=== PATIENT | male | born 1975 ===

== ENCOUNTER 2024-06-05 16:03 | Emergency (ER) | payer OTHER, SELFPAY ==
--- NOTE | ~2024-06-05 | XR_ITS ---
EXAMINATION: XR HAND/WRIST, RIGHT CLINICAL INFORMATION: Right pinky dog bite. COMPARISON: None available. TECHNIQUE: PA, lateral, and oblique views of the right hand and wrist. FINDINGS: The majority of the distal phalanx of the right fifth digit is missing. Only the base is seen. On the lateral view, the base appears subluxed ventrally upon the middle phalanx. There is marked soft tissue swelling. Bandages obscure detail. No foreign bodies are seen. The bones otherwise appear unremarkable. XR/XR hand wrist RT IMPRESSION: The majority of the distal phalanx of the right fifth digit is missing as described above. Electronically signed by: Vineet Mars MD 06/05/2024 06:09 PM JEOVANY MCBRIDE
[2024-06-05 16:08] VITALS: BP 144/86; PULSE 98; RESP 18; TEMP 37.3; O2SAT 94; BMI 31.0
--- NOTE | 2024-06-05 16:13 | ED_ITS ---
HPI - General Adult General Chief complaint: Animal Bite Stated complaint: Rt pinky finger-bit by his dog Time Seen by Provider: 06/05/24 16:45 Source: patient and family Mode of arrival: ambulatory Limitations: no limitations History of Present Illness ED Provider: DR. Tavarez HPI narrative: A 49-year-old male came in for evaluation right 5th finger laceration/amputation after was bitten by his own dog, the dog is indoor an fully and up to date on his immunizations the patient was trying to break a fight between his dog and another dog who bit his finger and causing complete amputation of distal phalanx of the right 5th finger. Patient is a right hand dominant. Patient is up-to-date on his own tetanus shot. Related Data Previous Rx's ?Medication ?Instructions ?Recorded amoxicillin 875 mg-potassium 1 tab PO BID #20 tabs 06/05/24 clavulanate 125 mg tablet oxycodone 5 mg tablet 5 mg PO Q8H PRN pain #7 tabs 06/05/24 Allergies Allergy/AdvReac Type Severity Reaction Status Date / Time No Known Allergies Allergy Verified 06/05/24 16:11 Review of Systems 2 Review of Systems: All other systems are reviewed and are negative Constitutional: Reports as per HPI and Reports no additional constitutional complaints Eyes: Reports as per HPI and Reports no additional eye complaints Reports system reviewed and no additional complaints, except as documented Cardiovascular: Reports as per HPI and Reports no additional cardiovascular complaints Respiratory: Reports as per HPI and Reports no additional respiratory complaints Gastrointestinal: Reports as per HPI and Reports no additional gastrointestinal complaints Genitourinary: Reports no additional female genitourinary complaints Musculoskeletal: Reports no additional musculoskeletal complaints Skin/Breast: Reports system reviewed and no additional complaints, except as docu Psychiatric: Reports no additional psychiatric complaints Endocrine: Reports no additional endocrine complaints Hematologic/Lymphatic: Reports no additional hematologic/lymphatic complaints Allergic/Immunologic: Reports no additional allergic/immunologic complaints Reports system reviewed and no additional complaints, except as documented and Reports Abnormal speech present [facility] Social History Social History Advance Directives: No Advance Directives Information Provided: Yes Physical Exam ED Vital Signs: Vital Signs - 24 hr 06/05/24 16:08 06/05/24 16:48 06/05/24 17:12 Temperature 99.2 F 98.2 F Pulse Rate 98 94 Respiratory Rate 18 13 14 Blood Pressure 144/86 H 148/82 H Pulse Oximetry 94 Oxygen Delivery Method Room Air BMI result Body Mass Index 31.0 Vital signs have been reviewed and appear to be correct. Blood pressure elevated. Heart rate normal. Respiratory rate normal. Temperature normal. Oxygen saturation normal. Appearance: Alert. Oriented X3. No acute distress. Head: Normal external exam. Normocephalic. Atraumatic. No Lepe signs noted. No raccoon eyes noted Eyes: PERRLA. EOMI. Conjunctiva and sclera normal. Eyelids normal. ENT: TM's Normal. Pharynx normal. Uvula midline. Moist mucous membranes. No trismus noted. No drooling noted. No muffled voice noted. Neck: Normal inspection. Neck supple. FROM. No adenopathy. Thyroid Normal. No meningeal signs. No neck mass noted. CVS: Normal heart rate and rhythm. Heart sound normal. No murmurs noted. Pulses normal throughout. Respiratory: No respiratory distress. Painless inspiration. Breath sounds normal. No wheezes/rales/rhonchi noted. Chest nontender. No accessory muscle usage noted or decreased air movement noted. Abdomen: Soft and nontender. Bowel sounds normal in all 4 quadrants. No distention noted. No organomegaly noted. No visible injury noted. Back: No CVA tenderness. Full range of motion noted. Skin: Skin warm and dry. Normal skin color. Normal skin turgor. No rashes/lesions/lacerations noted. Extremities: Right hand: Complete amputation of distal phalanx of right 5th finger. Neuro: Oriented X 3. Cranial nerve exam: II-XII are grossly intact No motor deficit. No sensory deficit. Reflexes normal. Course Course Course Narrative: RME: 49 yold male presents to the ED for dog bite to right pinky finger. on exam it seems dog ate half of patient's finger off. exam shows DIP of pinky finger missing. patient's DOG uptdate with rabies. tdap and xray Reevaluation(s) Reevaluation #1: 49-year-old male sustained a right 5th finger distal phalanx amputation after was bitten by his own dog who is up-to-date on his immunization, the case was discussed with Marline FISH on-call for Orthopedic and the plan is to do copious irrigation of the wounds, IV antibiotic, pain control, and follow-up at ortho Clinic tomorrow. Time: 19:00 Reevaluation #2: Copious irrigation using a L of normal saline with high pressure into the wound, the wound was dressed with bacitracin then gauze and wrapped with Milton bandage with pressure dressing. Time: 18:29 Medications Administered Discontinued Medications Generic Name Dose Route Start Last Admin Trade Name Freq PRN Reason Stop Dose Admin Bacitracin 3 appl 06/05/24 18:02 06/05/24 18:53 Bacitracin Oint 0.9 Gm Packet TOPICAL 06/05/24 18:03 3 appl ONCE ONE Administration Protocol Diphtheria/Tetanus/Acell Pertussis 0.5 ml 06/05/24 16:12 06/05/24 17:13 Diphth,Pertus(Acell),Tet Adult 0.5 Ml Syringe IM 06/05/24 16:13 0.5 ml .ONCE ONE Administration Hydromorphone HCl 1 mg 06/05/24 16:54 06/05/24 17:12 Hydromorphone Hcl 1 Mg/Ml Syringe IVPUSH 06/05/24 16:55 1 mg ONCE ONE Administration Protocol Piperacillin Sod/Tazobactam 50 mls @ 100 mls/hr 06/05/24 16:54 06/05/24 17:14 Sod 3.375 gm/ Sodium Chloride IV 06/05/24 17:23 100 mls/hr ONCE ONE Administration Sodium Chloride 1,000 mls @ 999 mls/hr 06/05/24 16:55 06/05/24 17:12 Ns IV 06/05/24 17:55 999 mls/hr .Q1H1M ONE Administration Medical Decision Making Differential Diagnosis Differential Diagnoses: The differential diagnosis associated with the presentation includes (Osteomyelitis, fracture, foreign body in the wound, intractable pain.) Admission/Observation Consideration of admission/observation: Escalation of care including admission/observation considered Independent Interpretation I performed an independent interpretation of an: Plain X-Ray (Right hand:The majority of the distal phalanx of the right fifth digit is missing. Only the base is seen. On the lateral view, the base appears subluxed ventrally upon the middle phalanx. There is marked soft tissue swelling. Bandages obscure detail. No foreign bodies are seen. The bones otherwi) Radiology Impression Discussion of test interpretation with radiology: I have reviewed the radiologist's reading. Discharge Plan Discharge Clinical Impression: Dog bite, Amputation of finger of right hand Patient Disposition: Home, Self-Care Instructions: Animal Bite (ED) Prescriptions: New amoxicillin-pot clavulanate 875-125 mg tablet 1 tab PO BID Qty: 20 0RF oxycodone 5 mg tablet 5 mg PO Q8H PRN (Reason: pain) Qty: 7 0RF Rx Instructions: Partial Fill upon patient request. Referrals: Sophia Leonardo MD [Physician] - Stand Alone Forms: Work/School Release Print Language: Albanian
[2024-06-05 16:48] VITALS: BP 148/82; PULSE 94; RESP 13; TEMP 36.8
[2024-06-05 17:12] VITALS: RESP 14
[2024-06-05] MEDS: 0.9 % Sodium Chloride 1,000 ML 999 ML IV (17:12)
[2024-06-05] MEDS: HYDROmorphone HCl 1 MG/ML SYRINGE IVPUSH ×2 (17:12→19:10)
[2024-06-05] MEDS: Diphth,Pertus(ACell),Tet Adult 0.5 ML SYRINGE IM (17:13)
[2024-06-05] MEDS: Piperacillin Sodium/Tazobactam 3.375 GM in 0.9 % Sodium Chloride 50 ML IV (17:14)
[2024-06-05] MEDS: Bacitracin Oint 0.9 GM PACKET 3 APPL TOPICAL (18:53)
[2024-06-05 19:10] VITALS: RESP 16
[2024-06-05 19:13] VITALS: BP 140/82; PULSE 81; RESP 16; TEMP 36.7; O2SAT 93
[2024-06-05 19:48] VITALS: BP 140/82; PULSE 81; RESP 16; TEMP 36.7; O2SAT 93
== END 2024-06-05 19:51 | disposition home or self-care (01) ==
PROVIDERS: Emergency Provider Emergency Medicine
DX: S68.126A Partial traumatic metacarpophalangeal amputation of right little finger, initial encounter (principal); M79.641 Pain in right hand; M25.531 Pain in right wrist; W54.0XXA Bitten by dog, initial encounter; Y93.89 Activity, other specified; Y92.89 Other specified places as the place of occurrence of the external cause; Y99.8 Other external cause status; Z23 Encounter for immunization
CPT/HCPCS: 73110; 73130; 90471; 90715; 96361; 96374; 96375; 96376; 99284; J1171; J2543

== ENCOUNTER 2024-06-07 09:41 | Outpatient (REF) | payer OTHER, SELFPAY ==
--- NOTE | ~2024-06-07 | XR_ITS ---
CLINICAL HISTORY: M79.641 - Pain in right hand Exam: AP, lateral, and oblique views of the right hand. Comparison: None. Findings: There is truncation of the distal phalanx of the small finger as well as soft tissue defect of the distal aspect of the small finger. There is presumed overlying gauze material. Diffuse soft tissue swelling. Metacarpophalangeal joints are anatomically aligned. Mild degenerative change of the 1st metacarpophalangeal joint. Impression: Extensive abnormality involving the distal aspect of the small finger. Clinical correlation advised as to the etiology. There is near-complete loss of the distal phalanx with soft tissue truncation. Question whether the patient had traumatic amputation or other etiology for extensive bony destructive change and soft tissue defect. This document has been electronically signed by: Carlos Wilkins MD on 06/11/2024 07:29:40
== END 2024-06-07 09:42 | disposition home or self-care (01) ==
LOC: HO.HOSX 09:41
DX: M79.641 Pain in right hand (principal)
CPT/HCPCS: 73130

== ENCOUNTER 2024-06-07 09:44 | Outpatient (AMB) | payer OTHER, SELFPAY ==
--- NOTE | 2024-06-07 09:58 | A.OFFVIS_ITS ---
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 Patient reports trying to separate his dog and another dog that were fighting when his dog bit his right small finger causing complete amputation of distal phalanx.Seen in ED same day. He states dog is fully vaccinated and up to date with vaccines. Currently states he was not able to sleep due to pain and throbbing in his small finger. Denies numbness or tingling. He was given ABX. 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 Patient reports trying to separate his dog and another dog that were fighting when his dog bit his right small finger causing complete amputation of distal phalanx.Seen in ED same day. He states dog is fully vaccinated and up to date with vaccines. Currently states he was not able to sleep due to pain and throbbing in his small finger. Denies numbness or tingling. He was given ABX. 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 Review of Systems Const All systems reviewed & are unremarkable except as noted in HPI and below Physical Exam Vital Signs: BMI result Body Mass Index 31.0 Extrem Other: Patient is alert, oriented, and in no acute distress. Neuro: Normal sensation of the tips of all digits of the right hand at this time Vascular: Cap refill brisk Pain: Patient reports significant pain with dressing removal on the right small finger ROM: Patient is able to make a closed fist and extend all other digits of the right hand fully and without difficulty Skin: Partial Traumatic amputation noted of the right small finger, with what appears to be exposed bone No evidence of infection General: No ecchymosis, erythema, or evidence of infection. Psych: Appears grossly normal Affect normal Attitude cooperative Assessment & Plan Assessment & Plan (1) 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 Traumatic amputation of the right small finger, partial Date of injury 06/05/2024 I educated the patient about the condition. I discussed both operative and nonoperative treatment options. The patient would like to proceed with surgery. The risks and benefits of operative treatment were discussed with the patient and the patient wishes to proceed with surgery. These risks include, but are no t limited to, risk of damage to blood vessels, nerves, tendons, infection, recurrence, incomplete relief of preoperative symptoms, persistent pain, possible need for further surgery, and the risks associated with regional blocks and/or anesthesia. Plan is to take the patient to the operating room at some point in the next few weeks for the following procedures: 1. Right small finger revision amputation under general anesthesia All of the preoperative paperwork including the consent was discussed today. All of the patient's questions were answered in the clinic today. The patient understands that they will be in contact with our surgical elastic knitter hand frame to discuss scheduling their procedure. Patient denies diabetes, blood thinners, asthma, heart issues, lung issues, kidney issues, or current smoking. Orders: Orders XR hand RT min 3V Today M79.641 - Pain in right hand Coding Level of Care Code Est Pt Level 4 (30484) Diagnoses 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
[2024-06-07 10:03] VITALS: BMI 31.0
== END 2024-06-07 10:49 | disposition home or self-care (01) ==
DX: S68.626A Partial traumatic transphalangeal amputation of right little finger, initial encounter (principal)
CPT/HCPCS: 99204

== ENCOUNTER → 2024-06-07 09:52 | Outpatient (BNV) | payer OTHER, SELFPAY | PROVIDERS: Visit Provider Radiology Diagnostic Radiology | DX: S68.626A Partial traumatic transphalangeal amputation of right little finger, initial encounter (principal) | CPT/HCPCS: 73130 ==

== ENCOUNTER 2024-06-07 12:44 | Emergency (ER) | payer OTHER, SELFPAY ==
[2024-06-07 12:46] VITALS: BP 145/88; PULSE 98; RESP 18; TEMP 36.6; O2SAT 98; BMI 31.0
--- NOTE | 2024-06-07 12:48 | ED_ITS ---
HPI - General Adult General Chief complaint: General Medical Stated complaint: wound open Time Seen by Provider: 06/07/24 13:33 Source: patient Mode of arrival: ambulatory Limitations: no limitations History of Present Illness ED Provider: renee jacobson np. HPI narrative: Patient is a 49-year-old male who presents emergency department for evaluation of bleeding to amputation stump, reports that he was evaluated in the hand specialist office prior to arrival he saw Ramsey FISH. he had a partial traumatic transphalangeal amputation of the right 5th digit on 06/05/2024. He states that today in the orthopedist office when the dressing was removed it began to bleed and it ?squirted blood?. Bleeding has continued and is now bleeding through the gauze. He reports significant pain to this area. Related Data Home Medications ?Medication ?Instructions ?Recorded ?Confirmed buspirone 10 mg tablet 10 mg PO BID 06/07/24 06/07/24 hydrochlorothiazide 25 mg tablet 25 mg PO DAILY 06/07/24 06/07/24 losartan 100 mg tablet 100 mg PO DAILY 06/07/24 06/07/24 sertraline 100 mg tablet 100 mg PO DAILY 06/07/24 06/07/24 Previous Rx's ?Medication ?Instructions ?Recorded amoxicillin 875 mg-potassium 1 tab PO BID #20 tabs 06/05/24 clavulanate 125 mg tablet oxycodone 5 mg tablet 5 mg PO Q8H PRN pain #7 tabs 06/05/24 Allergies Allergy/AdvReac Type Severity Reaction Status Date / Time No Known Allergies Allergy Verified 06/07/24 12:47 Review of Systems Review of Systems: Yes all other systems are reviewed and are negative [facility] Past Medical History Attestation statement: The following information was validated with the patient. 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 Physical Exam ED Vital Signs: Vital Signs - 24 hr 06/07/24 12:46 Temperature 98 F Pulse Rate 98 Respiratory Rate 18 Blood Pressure 145/88 H Pulse Oximetry 98 BMI result Body Mass Index 31.0 Appearance: Alert.?Oriented to person, place and time. No acute distress.?Normal affect. CVS: Heart sounds normal. Normal heart rate and rhythm.? Pulses normal.?? Respiratory: No respiratory distress.? Lung sounds clear to auscultation bilaterally?? Skin: Skin warm and dry.? Normal skin color.? Extremities: No extremity edema.? Right 5th digit partial amputation, appears to have exposed bone, active slow somewhat pulsatile bleeding Neuro: Moves all extremities spontaneously. Sensation intact bilaterally. Ambulates with normal steady gait. Course Course Course Narrative: RME performed by Keya Espinosa PA-C. Patient is a 49 year old assigned male at presenting to the emergency department with a right 5th finger injury. Patient states he was seen here 2 days ago for a traumatic amputation of the right 5th finger. Patient states that he was seen at the orthopedic provider who undressed it and blood squirted out and it continues to bleed. Detailed physical exam and review of systems are deferred to the physician primary care sports medicine. Patient placed back in the waiting room pending room availability. Reevaluation(s) Reevaluation #1: Attempted to achieve hemostasis with Xeroform gauze/bacitracin and a pressure dressing without effect. Area was cleansed. Does not appear to be an arterial bleed, when held in a dependent position there is continuous bleeding but resolves when elevated above the level of the chest. Surgicel gauze was ultimately placed with hemostasis achieved. Patient to follow-up with Dr. Leonardo for surgery as scheduled. Advised strict return precautions. All questions answered. Stable for discharge Time: 15:51 Medications Administered Discontinued Medications Generic Name Dose Route Start Last Admin Trade Name Radha PRN Reason Stop Dose Admin Lidocaine HCl 5 ml 06/07/24 13:38 06/07/24 14:01 Lidocaine Hcl 1 % Mpf 5 Ml Vial SUBCUT 06/07/24 13:39 5 ml ONCE ONE Administration Oxycodone HCl 5 mg 06/07/24 13:38 06/07/24 14:01 Oxycodone Hcl Immed Release 5 Mg Tablet PO 06/07/24 13:39 5 mg ONCE ONE Administration Medical Decision Making Medical Decision Making MDM Narrative: Patient is a 49-year-old male who presents emergency department for evaluation of bleeding to amputation stump, reports that he was evaluated in the hand specialist office prior to arrival he saw Ramsey FISH. he had a partial traumatic transphalangeal amputation of the right 5th digit on 06/05/2024. I spoke with Ramsey FISH, he advises that on the dressing was removed in office there was a small amount of bleeding, Xeroform gauze and a bulky dressing was applied which seem to have achieved hemostasis. Patient presents emergency department with persistent bleeding through the gauze. He is in quite a good amount of pain at the attempted removal of the gauze. I do note that there is still active bleeding. Dressing was reapplied, advised to hold pressure, plan to perform digital block for further adequate evaluation, may require Surgicel for hemostasis, on initial examination there did appear to be a slightly pulsatile component of the bleeding but was not squirting. Patient states that he is due for surgery for amputation revision on Monday of the upcoming week. Differential Diagnosis Differential Diagnoses: The differential diagnosis associated with the presentation includes (See narrative above) Admission/Observation Consideration of admission/observation: Escalation of care including admission/observation considered (See narrative above) Independent Historian Clinical information obtained from an independent historian. History obtained from or confirmed by: Spouse External Record Review External record reviewed: Outpatient record (See narrative above) Prescription Management I considered prescription management with: Pain Medication Discharge Plan Discharge Clinical Impression: Partial traumatic amputation of right little finger through phalanx Patient Disposition: Home, Self-Care Instructions: Finger Amputation (ED) Additional Instructions: Follow-up with surgery as scheduled on Monday. You may return with any new or worsening symptoms or concerns such as rebleeding, worsening pain. Prescriptions: No Action amoxicillin-pot clavulanate 875-125 mg tablet 1 tab PO BID Qty: 20 0RF oxycodone 5 mg tablet 5 mg PO Q8H PRN (Reason: pain) Qty: 7 0RF Rx Instructions: Partial Fill upon patient request. sertraline 100 mg tablet 100 mg PO DAILY buspirone 10 mg tablet 10 mg PO BID hydrochlorothiazide 25 mg tablet 25 mg PO DAILY losartan 100 mg tablet 100 mg PO DAILY Referrals: Physician,Unknown J [Primary Care Provider] - Print Language: Ethiopian
[2024-06-07] MEDS: Lidocaine HCl 1 % MPF 5 ML VIAL SUBCUT (14:01)
[2024-06-07] MEDS: oxyCODONE HCl Immed Release 5 MG TABLET PO (14:01)
[2024-06-07 16:04] VITALS: BP 145/88; PULSE 98; RESP 18; TEMP 36.6; O2SAT 98
== END 2024-06-07 16:07 | disposition home or self-care (01) ==
PROVIDERS: Emergency Provider Emergency Medicine
DX: M79.641 Pain in right hand (principal); Z48.00 Encounter for change or removal of nonsurgical wound dressing
CPT/HCPCS: 99283; J2003

== ENCOUNTER 2024-06-10 10:58 | Day surgery (SDC) | payer OTHER, SELFPAY ==
--- NOTE | 2024-06-10 10:40 | P.OP_ITS ---
Operative Note Operative Note Date of Service: 06/10/24 Narrative: Operative Note Narrative: Preop diagnosis: 1. Right small finger D IP level traumatic Amputation Postop diagnosis: Same Procedure: 1. Right small finger Revision amputation 2. I and D of open fracture Surgeon: Sophia Leonardo MD Finance Specialist: None Anesthesia: General Anesthesia Findings: For the most part A guillotine DIP level traumatic amputation, with a few small bony fragments from the distal phalanx to be debrided Implants: None Tourniquet time: 17 minutes EBL: 5.0 ml Specimen: None Drains: None Complications: None Disposition: Brought to the recovery room in stable condition Plan: Follow-up in 7-10 days for wound check Anticipate suture removal in 3 weeks Continue antibiotics until finished Indications: The patient is 49 years old with a traumatic amputation of his right small finger at the D IP joint level following a dog bite . The risks and benefits of operative treatment, including but not limited to risk of damage to blood vessels, nerves, tendons, infection, recurrence, persistent pain or numbness, incomplete resolution of preoperative symptoms, or need for further surgery were discussed with the patient and they wished to proceed with surgery. Procedure: Once consent was obtained patient was brought back to the operating suite and placed in the operating table in a supine position. . Perioperative antibiotics and anesthesia was administered by the anesthesia team. A tourniquet was applied to the proximal aspect of the right upper extremity and the limb was prepped and draped in a standard surgical fashion. The limb was elevated exsanguinated with Esmarch bandage and the tourniquet inflated to 250 mm of mercury for a total tourniquet time of 17 minutes. I performed an ulnar nerve block by infiltrating about the ulnar nerve at the wrist with some 1% lidocaine with epinephrine for postop pain control. The right small finger amputation site was essentially a guillotine type amputation at the D IP joint level. The amputation site was sharply debrided of nonviable tissue using a 15. Blade and iris scissors. There were a few small fragments of bone from the base of the distal phalanx. These were sharply debrided and removed.. The end of the middle phalanx was debrided using a rongeur to remove the cartilage, sharp edges and slightly shortened the bone for closure. The ends of the digital nerves were shortened as indicated. The wound was then copiously irrigated with normal saline. At this point the tourniquet was deflated and hemostasis obtained with a brief period of local pressure.. The wound was copiously irrigated with normal saline. The skin edges were reapproximated with 4-0 Prolene suture and a sterile dressing was applied about the s small and ring fingers. The patient appears to have tolerated the procedure well and with no complications. All digits were well vascularized conclusion of the case.
[2024-06-10 11:51] VITALS: BMI 30.1
[2024-06-10 12:15] VITALS: BP 138/86; PULSE 91; RESP 15; TEMP 37.2; O2SAT 94
[2024-06-10] MEDS: Lactated Ringers 1,000 ML 50 ML IVCONT (12:28)
--- NOTE | 2024-06-10 14:17 | MHC.SHP ---
Pre-Procedural Eval Section A - 24 Hr Update-Section A only Date of Service: 06/10/24 The patient is an INPATIENT: No Changes since office visit: No Cold of Flu in the past 2 weeks, No New Medical Problems, No Changes in Medication and No Patient answered all questions The patient has been examined within 24 hours of the surgical procedure. The History & Physical has been completed within 30 days and I have reviewed it.: Yes Section B - Complete if H&P > 30 days Chief Complaint: Partial traumatic transphalangeal amputation Allergies: Allergies Allergy/AdvReac Type Severity Reaction Status Date / Time No Known Allergies Allergy Verified 06/10/24 12:27 Plan I have reviewed the history and physical and performed a pertinent physical examination on my patient. No changes have occurred unless specified. Time Spent With Patient Time: Total time managing care of this patient today ____ minutes.
--- NOTE | 2024-06-10 15:16 | HO.ANESPROP2 ---
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 (Acute) Past Medical History Medical History Anxiety Depression HTN (hypertension) Functional capacity: independent ambulation Family History Family history of problems with anesthesia: No Surgical History Surgical History No pertinent past surgical history History of Problems with Anesthesia: No Social History Social History Patient Tobacco Use Status: Never used Tobacco Use of substances other than those prescribed or required for medical reasons: No Are you DNR?: No Advance Directives: No Advance Directives Information Provided: Yes Current occupational status: employed Current occupation: [employer]/ rt hand. Meds Allergies Allergy/AdvReac Type Severity Reaction Status Date / Time No Known Allergies Allergy Verified 06/10/24 12:27 Active Medications: Current Medications Lactated Ringer's (Lr) 1,000 mls @ 50 mls/hr IVCONT .Q20H MARTHA Last Admin: 06/10/24 12:28 Dose: 50 mls/hr Home Medications ?Medication ?Instructions ?Recorded ?Confirmed ?Last Taken ?Type buspirone 10 mg tablet 10 mg PO BID 06/07/24 06/10/24 Unknown History hydrochlorothiazide 25 mg tablet 25 mg PO DAILY 06/07/24 06/10/24 Unknown History losartan 100 mg tablet 100 mg PO DAILY 06/07/24 06/10/24 Unknown History sertraline 100 mg tablet 100 mg PO DAILY 06/07/24 06/10/24 Unknown History Exam Height,Weight and Vital Signs: Height 6 ft 1 in Weight 103.419 kg Last Vital Signs Temp 98.9 F 06/10/24 12:15 Pulse 91 06/10/24 12:15 Resp 15 06/10/24 12:15 BP 138/86 06/10/24 12:15 Pulse Ox 94 06/10/24 12:15 O2 Del Method Room Air 06/10/24 12:15 Airway Mallampati Class: II TM Dist: >3cm Neck ROM: Full Heart: RRR Lungs: CTA Assessment and Plan Assessment Anesthesia Assessment: Anesthesia Plan Discussed and Chart Reviewed Final Anesthetic Review Family History of Problems with Anesthesia: No History of Problems with Anesthesia: No NPO: Yes ASA Class: II Final Preanesthetic Review: Meds/Allgs Chart Reviewed, Consent Obtained/Reviewed and Anes Risks/Benef Reviewed Patient Risk: Low Procedure Risk: Low Anesthetic Plan Anesthetic Plan: GA Disposition: Standard PACU
[2024-06-10 15:45] VITALS: BP 130/73; PULSE 91; RESP 20; TEMP 37.3; O2SAT 94
[2024-06-10 15:50] VITALS: BP 104/65; PULSE 88; RESP 20; O2SAT 93
[2024-06-10 15:55] VITALS: BP 102/62; PULSE 89; RESP 20; O2SAT 95
[2024-06-10 16:00] VITALS: BP 104/64; PULSE 84; RESP 20; O2SAT 98
[2024-06-10 16:15] VITALS: BP 143/92; PULSE 86; RESP 20; TEMP 36.7; O2SAT 96
== END 2024-06-10 16:53 | disposition home or self-care (01) ==
PROVIDERS: Visit Provider Orthopaedic Surgery
PROC: (CPT 26951; principal; 2024-06-10 13:30)
DX: S68.626A Partial traumatic transphalangeal amputation of right little finger, initial encounter (principal); M79.641 Pain in right hand; W54.0XXA Bitten by dog, initial encounter; Y93.9 Activity, unspecified; Y92.9 Unspecified place or not applicable; Y99.9 Unspecified external cause status; I10 Essential (primary) hypertension; F32.A Depression, unspecified; F41.9 Anxiety disorder, unspecified; Z79.899 Other long term (current) drug therapy
CPT/HCPCS: 26951; 11012; J0131; J0690; J1100; J1596; J1885; J2003; J2004; J2250; J2704; J3010

== ENCOUNTER → 2024-06-10 10:58 | Outpatient (BNV) | payer OTHER, SELFPAY | PROVIDERS: Visit Provider Orthopaedic Surgery | DX: S68.626A Partial traumatic transphalangeal amputation of right little finger, initial encounter (principal) | CPT/HCPCS: 26951 ==

== ENCOUNTER 2024-06-19 10:09 | Outpatient (REF) | payer OTHER, SELFPAY ==
--- NOTE | ~2024-06-19 | XR_ITS ---
EXAMINATION: XR HAND, RIGHT CLINICAL INFORMATION: M79.641 - Pain in right hand. COMPARISON: 06/07/2024 TECHNIQUE: PA, lateral, and oblique views of the right hand. FINDINGS: Interval resection of previously noted truncated fifth distal phalanx with presumed transverse surgical defect along the distal fifth middle phalanx. Soft tissue swelling with presumed postsurgical change. Mild degenerative changes in the first carpometacarpal joint. Alignment maintained. XR/XR hand RT min 3V IMPRESSION: Presumed postsurgical changes at the fifth distal phalanx as detailed above. Correlation with clinical/surgical history recommended for confirmation. Electronically signed by: Sofy Russell MD 06/24/2024 11:21 AM EST
== END 2024-06-19 10:10 | disposition home or self-care (01) ==
LOC: HO.HOSX 10:09
DX: M79.641 Pain in right hand (principal); S68.626A Partial traumatic transphalangeal amputation of right little finger, initial encounter; W54.0XXA Bitten by dog, initial encounter; Y93.9 Activity, unspecified; Y92.9 Unspecified place or not applicable; Y99.9 Unspecified external cause status
CPT/HCPCS: 73130

== ENCOUNTER 2024-06-19 10:34 | Outpatient (AMB) | payer OTHER, SELFPAY ==
--- NOTE | 2024-06-19 10:37 | MHC.OFFVIS ---
Vital Signs 06/19/24 11:00 Height 6 ft 1 in Weight 230 lb BMI 30.3 Intake Visit Reasons: PO RT 5th digit rev amp 06/10/24 AR Intake Note: Omi is a 49 year old male who presents today for a post operative appointment s/p Right 5th Finger Revision Amputation 06/10/24. Patient reports that he is doing well, he has had some pain - worse when in the cold. He has finished his course of antibiotics and takes his pain medication PRN. He explains that this is mostly helpful at night. Dressing was stuck on incision, soaked off in sterile saline and hydrogen peroxide. Removed successfully with no complications Allergies No Known Allergies Allergy (Verified 06/19/24 11:04) HPI HPI PO RT 5th digit rev amp 06/10/24 AR: Details: Omi is a 49 year old male who presents today for a post operative appointment s/p Right 5th Finger Revision Amputation 06/10/24. Patient reports that he is doing well, he has had some pain - worse when in the cold. He has finished his course of antibiotics and takes his pain medication PRN. He explains that this is mostly helpful at night. Dressing was stuck on incision, soaked off in sterile saline and hydrogen peroxide. Removed successfully with no complications [facility] Medical History Anxiety Depression HTN (hypertension) Surgical History No pertinent past surgical history Social History Patient Tobacco Use Status: Never used Tobacco Current occupational status: employed Current occupation: [employer]/ rt hand. Review of Systems Const All systems reviewed & are unremarkable except as noted in HPI and below Physical Exam Vital Signs: BMI result Body Mass Index 30.3 Extrem Other: Patient is alert, oriented, and in no acute distress. Neuro: Normal sensation of the tips of all digits of the right hand at this time Vascular: Cap refill brisk Pain: Patient reports tenderness to palpation diffusely throughout the distal right small finger ROM: Patient is able to flex to approximately 60 degrees with the MCP joint of the right small finger Unable to achieve any active flexion at the PIP joint of the right small finger Is able to be passively flex to approximately 10-15 degrees at the PIP joint Skin: Well approximated and well healing incision site noted on the tip of the patient's right small finger status post amputation revision General: No ecchymosis, erythema, or evidence of infection. Psych: Appears grossly normal Affect normal Attitude cooperative Results Reviewed Results Reviewed: X-rays obtained in the office today and independently reviewed by me, Ramsey Verdugo PA-C, demonstrate surgically shortened middle phalanx of right small finger with no evidence of osteomyelitis or any other bone infection. 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 Traumatic amputation of right small finger status post amputation revision DOS 06/10/2024 Patient appears to be recovering well postoperatively Patient is educated about the typical recovery course At this time, it does not appear he has any sort of ongoing infection, and that his healing process is going quite well Patient is educated that during the surgery he did have to have the bone cut down past the DIP joint due to need for soft tissue coverage over the bone Patient was informed that he will not have any flexion as the joint has been removed However, patient was encouraged to move at the PIP and MCP joints of the right small finger Sutures will be removed in 2 weeks Patient will follow-up in 1 week for wound check and 2 weeks for suture removal, sooner with any acute concerns Orders: Orders XR hand RT min 3V Today M79.641 - Pain in right hand Coding Level of Care Code Global (03807) Diagnoses 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
[2024-06-19 11:00] VITALS: BMI 30.3
== END 2024-06-19 11:23 | disposition home or self-care (01) ==
DX: S68.626A Partial traumatic transphalangeal amputation of right little finger, initial encounter (principal)
CPT/HCPCS: 99024

== ENCOUNTER 2024-06-26 08:17 | Outpatient (REF) | payer OTHER, SELFPAY ==
--- NOTE | ~2024-06-26 | XR_ITS ---
EXAMINATION: XR HAND 3 OR MORE VIEWS RIGHT HISTORY: M79.641 - Pain in right hand COMPARISON: Comparison is made with the prior examination dated 06/19/2024. FINDINGS: Three views of the right hand are submitted. Osseous mineralization is normal. The patient is again noted to be status post amputation of the 5th finger at the level of the head of the middle phalanx. The bones are otherwise intact. There is no fracture or dislocation. The joint spaces are preserved. The soft tissues are unremarkable. XR/XR hand RT min 3V IMPRESSION: Postsurgical changes involving the 5th finger as described. No acute abnormality is seen. Electronically signed by: Richard Chadwick MD 06/28/2024 07:37 AM EST
== END 2024-06-26 08:18 | disposition home or self-care (01) ==
LOC: HO.HOSX 08:17
DX: M79.641 Pain in right hand (principal)
CPT/HCPCS: 73130

== ENCOUNTER 2024-06-26 11:08 | Outpatient (AMB) | payer OTHER, SELFPAY ==
--- NOTE | 2024-06-26 11:09 | MHC.OFFVIS ---
Intake Visit Reasons: PO RT 5th digit rev amp 06/10/24 AR Intake Note: Omi is a 49 year old male who presents today for a post operative appointment and wound check s/p Right 5th Finger Revision Amputation DOS: 06/10/24 w/ Dr Leonardo. Pt states his pain is worse at night. Pt states the cold weather makes his finger painful. Pt also states he is unable to bend his finger. Pt states he also gets throbbing pain. Allergies No Known Allergies Allergy (Verified 06/26/24 11:09) HPI HPI PO RT 5th digit rev amp 06/10/24 AR: Details: Omi is a 49 year old male who presents today for a post operative appointment s/p Right 5th Finger Revision Amputation 06/10/24. Patient reports that he is doing well, he has had some pain - worse when in the cold. He has finished his course of antibiotics and takes his pain medication PRN. He explains that this is mostly helpful at night. The patient does report that he is experiencing pain in the tip of the right little finger, and states that he feels that this is in the area of the finger that was removed. The patient states that the cold also bothers his finger. Patient reports significantly limited range of motion of the right PIP joint. No other acute complaints or concerns at this time. [facility] Medical History Anxiety Depression HTN (hypertension) Surgical History No pertinent past surgical history Social History Patient Tobacco Use Status: Never used Tobacco Current occupational status: employed Current occupation: [employer]/ rt hand. Review of Systems Const All systems reviewed & are unremarkable except as noted in HPI and below Physical Exam Extrem Other: Patient is alert, oriented, and in no acute distress. Neuro: Normal sensation of the tips of all digits of the right hand at this time Vascular: Cap refill brisk Pain: Patient reports tenderness to palpation diffusely throughout the distal right small finger ROM: Patient is able to flex to approximately 60 degrees with the MCP joint of the right small finger Unable to achieve any active flexion at the PIP joint of the right small finger Is able to be passively flex to approximately 20-30 degrees at the PIP joint Skin: Well approximated and well healing incision site noted on the tip of the patient's right small finger status post amputation revision General: No ecchymosis, erythema, or evidence of infection. Psych: Appears grossly normal Affect normal Attitude cooperative Results Reviewed Results Reviewed: X-rays obtained in the office today and independently reviewed by me, Ramsey Verdugo PA-C, demonstrate surgically shortened middle phalanx of right small finger with no evidence of osteomyelitis or any other bone infection. 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 Traumatic amputation of right small finger status post amputation revision DOS 06/10/2024 Patient appears to be recovering well postoperatively Patient is educated about the typical recovery course At this time, it does not appear he has any sort of ongoing infection, and that his healing process is going quite well Patient is educated that during the surgery he did have to have the bone cut down past the DIP joint due to need for soft tissue coverage over the bone Patient was informed that he will not have any flexion as the joint has been removed However, patient was encouraged to move at the PIP and MCP joints of the right small finger Sutures will be removed in 1 week Patient will follow-up in 1 week for wound check and suture removal, sooner with any acute concerns Orders: Orders XR hand RT min 3V Today M79.641 - Pain in right hand Coding Level of Care Code Global (40417) Diagnoses 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
== END 2024-06-26 11:49 | disposition home or self-care (01) ==
LOC: HO.HOS 11:08
DX: S68.626A Partial traumatic transphalangeal amputation of right little finger, initial encounter (principal)
CPT/HCPCS: 99024

== ENCOUNTER → 2024-06-26 11:16 | Outpatient (BNV) | payer OTHER, SELFPAY | PROVIDERS: Visit Provider Radiology Diagnostic Radiology | DX: M79.641 Pain in right hand (principal) | CPT/HCPCS: 73130 ==

== ENCOUNTER 2024-07-03 08:14 | Outpatient (REF) | payer OTHER, SELFPAY ==
--- NOTE | ~2024-07-03 | XR_ITS ---
EXAMINATION: XR HAND 3 OR MORE VIEWS RIGHT HISTORY: M79.641 - Pain in right hand COMPARISON: Comparison is made with the prior examination dated 06/26/2024. FINDINGS: Three views of the right hand are submitted. Osseous mineralization is normal. The patient is again noted to be status post amputation of the 5th finger at the level of the head of the middle phalanx. There is no fracture or dislocation. The joint spaces are preserved. The soft tissues are unremarkable. XR/XR hand RT min 3V IMPRESSION: Amputation of the 5th finger at the level of the head of the 5th proximal phalanx. Electronically signed by: Richard Chadwick MD 07/04/2024 09:25 AM EST
== END 2024-07-03 08:15 | disposition home or self-care (01) ==
LOC: HO.HOSX 08:14
DX: S68.626D Partial traumatic transphalangeal amputation of right little finger, subsequent encounter (principal)
CPT/HCPCS: 73130

== ENCOUNTER 2024-07-03 08:21 | Outpatient (AMB) | payer OTHER, SELFPAY ==
--- NOTE | 2024-07-03 08:27 | A.OFFVIS_ITS ---
Vital Signs 07/03/24 08:44 Height 6 ft 1 in Weight 230 lb BMI 30.3 Intake Visit Reasons: PO RT 5th digit rev amp 06/10/24 AR Intake Note: Omi is a 49 year old right hand dominant male who presents today for a post operative wound check s/p Right 5th Finger Revision Amputation DOS: 06/10/24 w/ Dr Leonardo. Pt states he has swelling and redness that wasn't there before. Pt states he is able to bend his finger better than his last visit. Allergies No Known Allergies Allergy (Verified 07/03/24 08:28) HPI HPI PO RT 5th digit rev amp 06/10/24 AR: Details: Omi is a 49 year old male who presents today for a post operative appointme nt s/p Right 5th Finger Revision Amputation 06/10/24. Patient reports that he is doing well, he has had some pain - worse when in the cold. He has finished his course of antibiotics and takes his pain medication PRN. He explains that this is mostly helpful at night. The patient does report that he is experiencing pain in the tip of the right little finger, and states that he feels that this is in the area of the finger that was removed. The patient states that the cold also bothers his finger. The patient expresses that he feels the tip of the finger is red, in his concern that this may represent a potential infection. Patient reports significantly limited range of motion of the right PIP joint. No other acute complaints or concerns at this time. [facility] Medical History Anxiety Depression HTN (hypertension) Surgical History No pertinent past surgical history Social History Patient Tobacco Use Status: Never used Tobacco Current occupational status: employed Current occupation: [employer]/ rt hand. Review of Systems Const All systems reviewed & are unremarkable except as noted in HPI and below Physical Exam Vital Signs: BMI result Body Mass Index 30.3 Extrem Other: Patient is alert, oriented, and in no acute distress. Neuro: Normal sensation of the tips of all digits of the right hand at this time Vascular: Cap refill brisk Pain: Patient reports tenderness to palpation diffusely throughout the distal right small finger ROM: Patient is able to flex to approximately 60 degrees with the MCP joint of the right small finger Unable to achieve any active flexion at the PIP joint of the right small finger Is able to be passively flex to approximately 20-30 degrees at the PIP joint Skin: Well approximated and well healing incision site noted on the tip of the patient's right small finger status post amputation revision General: There is noted to be some redness at the tip of the right small finger, largely unchanged from previous evaluation. Looks to represent hyperemia, but could represent potential early cellulitis And no ecchymosis or other evidence of infection Psych: Appears grossly normal Affect normal Attitude cooperative Results Reviewed Results Reviewed: X-rays obtained in the office today and independently reviewed by me, Ramsey Verdugo PA-C, demonstrate surgically shortened middle phalanx of right small finger with no evidence of osteomyelitis or any other bone infection. 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 Traumatic amputation of right small finger status post amputation revision DOS 06/10/2024 Patient appears to be recovering well postoperatively Patient is educated about the typical recovery course Due to slight redness, patient was placed on a one-week course of Augmentin out of an abundance of caution Patient is educated that during the surgery he did have to have the bone cut down past the DIP joint due to need for soft tissue coverage over the bone Patient was informed that he will not have any flexion as the joint has been removed However, patient was encouraged to move at the PIP and MCP joints of the right small finger Sutures removed, Steri-Strips applied Patient will follow-up in 1 week for wound check, sooner with any acute concerns. 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
[2024-07-03 08:44] VITALS: BMI 30.3
== END 2024-07-03 09:07 | disposition home or self-care (01) ==
DX: S68.626A Partial traumatic transphalangeal amputation of right little finger, initial encounter (principal)
CPT/HCPCS: 99024

== ENCOUNTER → 2024-07-03 08:23 | Outpatient (BNV) | payer OTHER, SELFPAY | PROVIDERS: Visit Provider Radiology Diagnostic Radiology | DX: M79.641 Pain in right hand (principal) | CPT/HCPCS: 73130 ==

== ENCOUNTER 2024-07-12 08:16 | Outpatient (AMB) | payer OTHER, SELFPAY ==
[2024-07-12 08:18] VITALS: BMI 30.3
--- NOTE | 2024-07-12 08:18 | MHC.OFFVIS ---
Vital Signs 07/12/24 08:18 Height 6 ft 1 in Weight 230 lb BMI 30.3 Intake Visit Reasons: PO 3 week RT 5th digit rev amp 06/10/24 AR Intake Note: Omi is a 49 year old right hand dominant male who presents today for a post operative wound check s/p Right 5th Finger Revision Amputation DOS: 06/10/24 w/ Dr Leonardo. Patient reports he finished his antibiotics however his finger is still swollen, sensitive to touch, numb, and red. Allergies No Known Allergies Allergy (Verified 07/12/24 08:19) HPI HPI PO 3 week RT 5th digit rev amp 06/10/24 AR: Details: Omi is a 49 year old male who presents today for a post operative appointment s/p Right 5th Finger Revision Amputation 06/10/24. Patient reports that he is doing well, he has had some pain - worse when in the cold. He has finished his course of antibiotics and takes his pain medication PRN. He explains that this is mostly helpful at night. The patient does report that he is experiencing pain in the tip of the right little finger, and states that he feels that this is in the area of the finger that was removed. The patient states that the cold also bothers his finger. The patient expresses that he feels the tip of the finger is red, in his concern that this may represent a potential infection. Patient reports significantly limited range of motion of the right PIP joint. No other acute complaints or concerns at this time. [facility] Medical History Anxiety Depression HTN (hypertension) Surgical History No pertinent past surgical history Social History Patient Tobacco Use Status: Never used Tobacco Current occupational status: employed Current occupation: [employer]/ rt hand. Review of Systems Const All systems reviewed & are unremarkable except as noted in HPI and below Physical Exam Vital Signs: BMI result Body Mass Index 30.3 Extrem Other: Patient is alert, oriented, and in no acute distress. Neuro: Normal sensation of the tips of all digits of the right hand at this time Vascular: Cap refill brisk Pain: Patient reports tenderness to very gentle palpation of the distal aspect of the right small finger ROM: Patient is able to flex to approximately 60 degrees with the MCP joint of the right small finger Unable to achieve any active flexion at the PIP joint of the right small finger Is able to be passively flex to approximately 20-30 degrees at the PIP joint Skin: Well approximated and well healing incision site noted on the tip of the patient's right small finger status post amputation revision General: Redness present at last visit appears to have resolved And no ecchymosis or other evidence of infection Psych: Appears grossly normal Affect normal Attitude cooperative Assessment & Plan Assessment & Plan (1) 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 Traumatic amputation of right small finger status post amputation revision DOS 06/10/2024 Patient appears to be recovering well postoperatively Patient is educated about the typical recovery course No further antibiotics indicated Patient is educated that during the surgery he did have to have the bone cut down past the DIP joint due to need for soft tissue coverage over the bone Patient was informed that he will not have any flexion as the joint has been removed However, patient was encouraged to move at the PIP and MCP joints of the right small finger Patient was referred to occupational therapy for range of motion, strengthening, desensitization of right small finger Patient will follow-up in 3-4 weeks for reassessment, sooner with any acute concerns Orders: Orders OT Evaluation and Treatment Today S68.626A - Partial traumatic transphalangeal amputation of right little finger, initial encounter Coding Level of Care Code Global (51551) Diagnoses 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
== END 2024-07-12 08:46 | disposition home or self-care (01) ==
DX: S68.626A Partial traumatic transphalangeal amputation of right little finger, initial encounter (principal)
CPT/HCPCS: 99024

== ENCOUNTER 2024-08-09 07:44 | Outpatient (REF) | payer OTHER, SELFPAY ==
--- NOTE | ~2024-08-09 | XR_ITS ---
CLINICAL HISTORY: M79.641 - Pain in right hand 3 views right hand Comparison: DX/SR - XR HAND RT MIN 3V - 07/03/24 08:23 EST DX/SR - XR HAND RT MIN 3V - 06/26/24 11:16 EST Findings: No acute fractures, subluxations or dislocations. Amputation at the level of the distal aspect 5th middle phalanx No periostitis or bony destruction. Joint intervals are preserved. No marginal erosions or overhanging osteophytes. Ulnar styloid perserved. There is soft tissue fullness of the 5th digit at the amputation site. Carpal bones unremarkable.. No radiopaque foreign body. Impression: 1. There is soft tissue fullness at the level of the 5th digit amputation site but no bony destructive processes. 2. Three-phase bone scan or contrast-enhanced MRI may be of further diagnostic value. This document has been electronically signed by: Elton Baxter MD on 08/09/2024 11:30:46
== END 2024-08-09 07:45 | disposition home or self-care (01) ==
LOC: HO.HOSX 07:44
DX: M79.641 Pain in right hand (principal); S68.626A Partial traumatic transphalangeal amputation of right little finger, initial encounter; X58.XXXA Exposure to other specified factors, initial encounter; Y93.9 Activity, unspecified; Y92.9 Unspecified place or not applicable; Y99.9 Unspecified external cause status
CPT/HCPCS: 73130; 99212

== ENCOUNTER 2024-08-09 07:44 | Outpatient (AMB) | payer OTHER, SELFPAY ==
--- NOTE | 2024-08-09 08:13 | MHC.OFFVIS ---
Intake Visit Reasons: PO 3 week RT 5th digit rev amp 06/10/24 AR Intake Note: Omi is a 49 year old right hand dominant male who presents today for a post operative wound check s/p Right 5th finger Revision Amputation 06/10/24. At his last visit he was referred for OT to work on ROM. Patient reports ongoing discomfort and soreness. He is concerned for the swelling there is and how much wider his 5th digit is compared to his left 5th digit. Patient is not taking anything for pain at this time. Allergies No Known Allergies Allergy (Verified 08/09/24 08:28) HPI HPI PO 3 week RT 5th digit rev amp 06/10/24 AR: Details: Omi is a 49 year old right hand dominant male who presents today for a post operative wound check s/p Right 5th finger Revision Amputation 06/10/24. At his last visit he was referred for OT to work on ROM. Patient reports ongoing discomfort and soreness. He is concerned for the swelling there is and how much wider his 5th digit is compared to his left 5th digit. Patient is not taking anything for pain at this time. FORMERLY [facility], [facility]ER [facility] Medical History Anxiety Depression HTN (hypertension) Surgical History No pertinent past surgical history Social History Patient Tobacco Use Status: Never used Tobacco Current occupational status: employed Current occupation: [employer]/ rt hand. Review of Systems Const All systems reviewed & are unremarkable except as noted in HPI and below Physical Exam Extrem Other: Patient is alert, oriented, and in no acute distress. Neuro: Normal sensation of the tips of all digits of the right hand at this time Vascular: Cap refill brisk Pain: Patient reports tenderness to very gentle palpation of the distal aspect of the right small finger ROM: Patient is able to flex to approximately 60 degrees with the MCP joint of the right small finger Patient is able to actively flex to approximately 30-40 degrees in the PIP joint of the right small finger Skin: Well approximated and well healied incision site noted on the tip of the patient's right small finger status post amputation revision There are noted to be some very small, superficial abrasions noted, the patient states this is from rubbing his hand on a towel General: Redness present at last visit appears to have resolved And no ecchymosis or other evidence of infection Psych: Appears grossly normal Affect normal Attitude cooperative Results Reviewed Results Reviewed: X-rays obtained in the office today and independently reviewed by me, Ramsey Verdugo PA-C, demonstrate surgically shortened middle phalanx of right small finger with no evidence of osteomyelitis or any other bone infection. 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 Traumatic amputation of right small finger status post amputation revision DOS 06/10/2024 Patient appears to be recovering well postoperatively Patient is educated about the typical recovery course No further antibiotics indicated Patient is educated that during the surgery he did have to have the bone cut down past the DIP joint due to need for soft tissue coverage over the bone Patient was informed that he will not have any flexion as the joint has been removed However, patient was encouraged to move at the PIP and MCP joints of the right small finger Patient was advised to continue occupational therapy for range of motion, strengthening, desensitization of right small finger Patient was advised he should not do rough desensitization of the tip of the finger, as it has caused superficial abrasions and I do not want any potential infection to occur Out of work until follow-up Patient will follow-up in 4-5 weeks for reassessment, sooner with any acute concerns Orders: Orders XR hand RT min 3V Today M79.641 - Pain in right hand Coding Level of Care Code Global (11815) Diagnoses 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
== END 2024-08-09 08:53 | disposition home or self-care (01) ==
DX: S68.626A Partial traumatic transphalangeal amputation of right little finger, initial encounter (principal)
CPT/HCPCS: 99024

== ENCOUNTER → 2024-08-09 08:04 | Outpatient (BNV) | payer OTHER, SELFPAY | PROVIDERS: Visit Provider Radiology Diagnostic Radiology | DX: M79.641 Pain in right hand (principal) | CPT/HCPCS: 73130 ==

== ENCOUNTER 2024-09-10 08:03 | Outpatient (AMB) | payer OTHER, SELFPAY ==
--- NOTE | 2024-09-10 08:17 | MHC.OFFVIS ---
Intake Visit Reasons: RT 5th digit rev amp 06/10/24 AR Intake Note: Omi is a 49 year old right hand dominant male who presents today for a follow up s/p Right 5th finger Revision Amputation DOS: 06/10/24 w/ Dr Sophia Leonardo. Patient reports that he is having pain and swelling in the 5th digit. He is working with OT on desensitization as he is really struggling with tenderness. His finger is cold in comparison to the other fingers which is very bothersome and concerning for him. Allergies No Known Allergies Allergy (Verified 09/10/24 08:25) HPI HPI RT 5th digit rev amp 06/10/24 AR: Details: Omi is a 49 year old right hand dominant male who presents today for a follow up s/p Right 5th finger Revision Amputation DOS: 06/10/24 w/ Dr Sophia Leonardo. Patient reports that he is having pain and swelling in the 5th digit. He is working with OT on desensitization as he is really struggling with tenderness. His finger is cold in comparison to the other fingers which is very bothersome and concerning for him. FORMERLY [facility], [facility] Medical History Anxiety Depression HTN (hypertension) Surgical History No pertinent past surgical history Social History Patient Tobacco Use Status: Never used Tobacco Current occupational status: employed Current occupation: [employer]/ rt hand. Review of Systems Const All systems reviewed & are unremarkable except as noted in HPI and below Physical Exam Extrem Other: Patient is alert, oriented, and in no acute distress. Neuro: Normal sensation of the tips of all digits of the right hand at this time Vascular: Cap refill brisk Pain: Patient reports tenderness to very gentle palpation of the distal aspect of the right small finger ROM: Patient is able to flex to approximately 60 degrees with the MCP joint of the right small finger Patient is able to actively flex to approximately 50 degrees in the PIP joint of the right small finger Skin: Well approximated and well healied incision site noted on the tip of the patient's right small finger status post amputation revision General: No erythema And no ecchymosis or other evidence of infection Psych: Appears grossly normal Affect normal Attitude cooperative Results Reviewed Results Reviewed: X-rays obtained in the office today and independently reviewed by me, Ramsey Verdugo PA-C, demonstrate surgically shortened middle phalanx of right small finger with no evidence of osteomyelitis or any other bone infection. 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 Traumatic amputation of right small finger status post amputation revision DOS 06/10/2024 Patient appears to be recovering well postoperatively Patient is educated about the typical recovery course No further antibiotics indicated Patient is educated that during the surgery he did have to have the bone cut down past the DIP joint due to need for soft tissue coverage over the bone Patient was informed that he will not have any flexion as the joint has been removed However, patient was encouraged to move at the PIP and MCP joints of the right small finger Patient was advised to continue occupational therapy for range of motion, strengthening, desensitization of right small finger Patient was advised he should not do rough desensitization of the tip of the finger, as it has caused superficial abrasions and I do not want any potential infection to occur Patient was advised that he will follow-up with Dr. Leonardo for 30 minute appointment for discussion of his ongoing symptoms and if any further treatment is indicated, patient was amenable to this plan Patient will follow-up in 3-4 weeks for reassessment, sooner with any acute concerns Orders: Orders XR hand RT min 3V Today M79.641 - Pain in right hand Coding Level of Care Code Est Pt Level 3 (96093) Diagnoses 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
== END 2024-09-10 08:47 | disposition home or self-care (01) ==
LOC: HO.HOS 08:04
DX: S68.626A Partial traumatic transphalangeal amputation of right little finger, initial encounter (principal)
CPT/HCPCS: 99213

== ENCOUNTER 2024-09-10 08:03 | Outpatient (REF) | payer OTHER, SELFPAY ==
--- NOTE | ~2024-09-10 | XR_ITS ---
EXAMINATION: XR HAND 3 OR MORE VIEWS RIGHT HISTORY: M79.641 - Pain in right hand COMPARISON: Comparison is made with the prior examination dated 08/09/2024. FINDINGS: Three views of the right hand are submitted. Osseous mineralization is normal. The patient is again noted to be status post indication of the 5th finger at the level of the DIP joint. There is no fracture or dislocation. The joint spaces are preserved. Mild soft tissue swelling of the 5th finger persists. XR/XR hand RT min 3V IMPRESSION: Amputation deformity of the 5th finger. Mild soft tissue swelling. No acute abnormality is seen. Electronically signed by: Richard Chadwick MD 09/10/2024 11:22 AM EDT
== END 2024-09-10 08:04 | disposition home or self-care (01) ==
LOC: HO.HOSX 08:03
DX: M79.641 Pain in right hand (principal); S62.626D Displaced fracture of middle phalanx of right little finger, subsequent encounter for fracture with routine healing; Z98.890 Other specified postprocedural states
CPT/HCPCS: 73130; 99212

== ENCOUNTER → 2024-09-10 08:07 | Outpatient (BNV) | payer OTHER, SELFPAY | PROVIDERS: Visit Provider Radiology Diagnostic Radiology | DX: M79.641 Pain in right hand (principal) | CPT/HCPCS: 73130 ==

== ENCOUNTER 2024-09-11 07:59 | Outpatient (RCR) | payer OTHER, SELFPAY ==
--- NOTE | 2024-07-17 11:16 | MHC.OT.EP ---
[address] [phone] Occupational Therapy Plan of Care Patient Name: Omi Robles Date of Evaluation: 07/17/24 Diagnosis: Partial traumatic amputation of R small finger Pain Location: Pain in right small finger Current: 8/10 Best: 5/10 Pain Score: 8 Pain Scale Used: Numeric (0 - 10) Aggravating Factors: Grasping, bumping, writing Alleviating Factors: pain medication Assessment: Omi is a 49 y/o male s/p partial traumatic transphalangeal amputation of right 5th digit. Pt presents with 8/10 pain in right residual small finger with hypersensitivity, decreased MCP/PIP joint ROM, and decreased icu manager strength limiting function. Pt has been out of work since initial injury. Quick DASH score 77.3%. Pt would benefit from skilled OT to address noted barriers and safely return to work. Frequency and Duration: The patient will be seen 2x/wk for 4 weeks Short Term Goals: Decrease digit pain to <4/10 Improve PIP joint ROM to >45 degrees Demo IND with desensitization techniques Alterations Sewer Goals: Pain free with ADL's/IADL's Right small finger PIP/MCP joint to WNLs Improve icu manager strength to >60# IND with ROM/strengthening HEP Treatment Plan: Therapeutic Exercise Therapeutic Activity Home Exercise Program Patient Education Desensitization/Sensory Re-ed Edema Control Paraffin Fluidotherapy MHP Joint Mobilization Soft Tissue Mobilization Kinesiotaping Electronically Signed By: Fozia Ramirez MS OTR/L Please Sign and return to therapist. Thank you once again for your referral.
--- NOTE | 2024-08-07 14:17 | MHC.OT.OP ---
[address] [phone] F: [phone] Occupational Therapy Progress Note Patient Name: Omi Robles Diagnosis: Partial traumatic amputation of R small finger Date of Surgery: Date of Evaluation: 07/17/24 Treatments to Date: 6 Subjective: It's getting there, I feel like I come to therapy and it gets better and then at home I don't have the same things to keep it moving Pain Score: 3 Pain Location: Right small finger Objective Measures: Right small finger MCP 90 degrees PIP 60 degrees (with heat and stretch) Status: Progressing Assessment: Omi is about two months s/p dog bite injury requiring revision of amputation w/ Dr Leonardo. He is progressing well through therapy with improvements in sensitivity and range. He still has edema through small finger and decreased range and gross grasp, but doing well w/ home program and trying to incorporate small finger. Short Term Goals: Decrease digit pain to <4/10 (met) Demo IND with desensitization techniques (met) PIP flex >45 degrees (met) Experimental Preflight Mechanic Goals: Pain free with ADL's/IADL's Right small finger PIP/MCP joint to WNLs Improve heat treat supervisor strength to >60# IND with ROM/strengthening HEP Frequency and Duration: The patient will be seen 2x/wk for 3 weeks Treatment Plan: Therapeutic Exercise Therapeutic Activity Home Exercise Program Splinting Patient Education Desensitization/Sensory Re-ed Edema Control ADL Training Fluidotherapy MHP Joint Mobilization Soft Tissue Mobilization Kinesiotaping Electronically Signed By: Sun Melgoza OTR/Michaela CHT Reviewed/agree with student documentation: Therapist:
--- NOTE | 2024-09-11 09:09 | MHC.OT.OP ---
[address] [phone] F: [phone] Occupational Therapy Progress Note Patient Name: Omi Robles Diagnosis: Partial traumatic amputation of R small finger Date of Surgery: Date of Evaluation: 07/17/24 Treatments to Date: 13 Subjective: I'm going back to work this week Pain Score: 1 Pain Location: Right small finger Objective Measures: D5 pre tx: MCP 80 PIP 60 post tx: MCP 90 PIP 70 Gross grasp 60lb Status: Progressing Assessment: Omi is now 3.5 months s/p dog bite injury requiring revision of amputation w/ Dr Leonardo. He is progressing well through therapy with improvements in sensitivity and range, He still has edema through small finger and decreased range and gross grasp, but doing well w/ home program and trying to incorporate small finger. He is returning to work this week and we will hold further therapy and he will continue home program. He will continue self management, has appt w/ Dr Leonardo at the end of this month to reassess for further needs. Short Term Goals: Decrease digit pain to <4/10 (met) Demo IND with desensitization techniques (met) PIP flex >45 degrees (met) Hot Roller Goals: Pain free with ADL's/IADL's (met) Right small finger PIP/MCP joint to WNLs Improve poultry scalder strength to >60# (met) IND with ROM/strengthening HEP Frequency and Duration: The patient will be seen 2x/wk for 3 weeks Treatment Plan: Therapeutic Exercise Therapeutic Activity Home Exercise Program Splinting Patient Education Desensitization/Sensory Re-ed Edema Control ADL Training Fluidotherapy MHP Joint Mobilization Soft Tissue Mobilization Kinesiotaping Electronically Signed By: Sun Melgoza OTR/L CHT Reviewed/agree with student documentation: Therapist:
--- NOTE | 2024-10-31 13:40 | MHC.OT.DC ---
[address] [phone] F: [phone] Occupational Therapy Discharge Note Patient Name: Omi Robles Provider: Ramsey Verdugo PA-C Diagnosis: Partial traumatic amputation of R small finger Date of Evaluation: 07/17/24 Date of Discharge: 10/31/24 Treatments to Date: 13 Discharge Status: Improved Function Independent with HEP Discharge Summary: Omi was referred to hand therapy post-op small finger amputation after dog bite injury. He has completed course of OT and progressed well w/ desensitization, range, pain, edema and overall improvements in daily use. He was last seen a couple months ago and has since returned back to work. OT was placed on hold for patient to trial self management and we have not heard back for further appointments and will be discharging from services at this time. Electronically Signed By: Sun Melgoza OTR/L CHT Please Sign and return to therapist, thank you for your referral.
== END 2024-10-31 13:41 | disposition home or self-care (01) ==
LOC: HO.OT 07:59
DX: S68.626A Partial traumatic transphalangeal amputation of right little finger, initial encounter (principal)
CPT/HCPCS: 97110; 97112; 97140; 97165; 97530

== ENCOUNTER 2024-10-09 13:44 | Outpatient (AMB) | payer OTHER, SELFPAY ==
[2024-10-09 14:01] VITALS: BMI 30.3
--- NOTE | 2024-10-09 14:01 | A.OFFVIS_ITS ---
Vital Signs 10/09/24 14:01 Height 6 ft 1 in Weight 230 lb BMI 30.3 Intake Visit Reasons: OV-RT 5th digit rev amp 06/10/24 AR Intake Note: Omi is a 49 year old right hand dominant male who presents today for a follow up s/p Right 5th finger Revision Amputation DOS: 06/10/24 w/ Dr Sophia Leonardo. States he is not able to do heavy lifting, he has sensitivity, and at times he has discoloration. Allergies No Known Allergies Allergy (Verified 10/09/24 14:15) HPI HPI OV-RT 5th digit rev amp 06/10/24 AR: Details: Omi is a 49 year old right hand dominant man who returns with complaints of right small finger hypersensitivity. He is S/P right small finger DIP joint level revision amputation & open fracture I&D, DOS: . His hypersensitivity is improving. He had increased pain in the winter in cold weather, but this is better. . He is limited in his heavy lifting & other use of his small finger. He was doing well when he was discharged by OT hand therapy, according to their note from 09/11/24. [facility] Medical History Anxiety Depression HTN (hypertension) Surgical History No pertinent past surgical history Social History Patient Tobacco Use Status: Never used Tobacco Current occupational status: employed Current occupation: [employer]/ rt hand. Review of Systems Const All systems reviewed & are unremarkable except as noted in HPI and below Physical Exam Vital Signs: BMI result Body Mass Index 30.3 Const General: no acute distress and alert Orientation/consciousness: patient oriented x3 Neuro General: patient oriented x3 Extrem Other: Evaluation of Right Upper Extremity: The patient is alert, oriented, and in no acute distress Neuro: Median, Ulnar, Radial nerves motor and sensory intact and sensation is normal to the tips of all digits Vascular: Cap refill brisk ROM: It seems he was afraid to push the small finger PIP joint in flexion or extension Initially he would only flex the PIP joint to ~50 degrees, we worked on ROM and he improved this to 80 degrees He can hold his finger at 80 degrees of flexion against resistance Wound well-healed No evidence of neuroma Radiographs: 3 views of the hand were viewed by me today in clinic. They show no fxs, and a SF DIP amputation Psych Appearance: grossly normal Affect: normal affect Attitude: cooperative Assessment & Plan Assessment & Plan (1) Partial traumatic amputation of right little finger through phalanx: Code(s): S68.626A - Partial traumatic transphalangeal amputation of right little finger, initial encounter Category: Medical (2) Stiffness of right hand joint: Code(s): M25.641 - Stiffness of right hand, not elsewhere classified Category: Medical Plan Assessment & Plan: 1. Right small finger amputation, S/P revision amputation DOS: 06/10/24 From a dog bite injury, DOI: 06/05/24 I educated him about this condition He appears to be doing well. He says he didn't know if it was OK to work through the pain to improve the PIP motion. He will work on ROM exercises, and massaging about the fingertip to improve his hypersensitivity I demonstrated exercises to improve FDS strength and function He's happy with the plan. He will follow up prn Scribed for Sophia Leonardo MD by Jong Wade, medical technologist blood bank, on 10/09/24 at 2:30 PM, EST. Coding Level of Care Code Est Pt Level 3 (62830) Diagnoses 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 Stiffness of right hand joint M25.641
== END 2024-10-09 16:17 | disposition home or self-care (01) ==
LOC: HO.HOS 13:45
PROVIDERS: Visit Provider Orthopaedic Surgery
DX: S68.626D Partial traumatic transphalangeal amputation of right little finger, subsequent encounter (principal); M25.641 Stiffness of right hand, not elsewhere classified; W54.0XXD Bitten by dog, subsequent encounter
CPT/HCPCS: 99213